=== PATIENT | male | born 1970 ===

== ENCOUNTER 2017-06-09 13:24 | Inpatient (IN) | payer MEDICAID ==
[2017-06-09] MEDS ORDERED: Sodium Chloride 0.9% 1,000 ML IV STA (15:05)
[2017-06-09 15:17] LABS: BASO % 0.1 % (0.0-2.0); EOS % 0.2 % (0.0-4.0); HEMATOCRIT 43.5 % (35.0-51.0); LYMPH % 10.4 % (20.0-40.0); MEAN CELL VOLUME 85.6 fL (80.0-94.0); MEAN CORPUSCULAR HEMOGLOBIN 29.8 pg (27.0-31.0); MEAN CORPUSCULAR HGB CONC 34.8 g/dL (33.0-37.0); MEAN PLATELET VOLUME 8.9 fL (7.2-11.7); MONO # 0.6 K/uL (0.0-0.8); MONO % 6.7 % (0.0-10.0); RED CELL DISTRIBUTION WIDTH 13.7 % (11.5-14.5); WHITE BLOOD COUNT 9.4 K/uL (4.8-10.8)
[2017-06-09 15:20] LABS: RBC URINE < 1 /hpf (0-3); URINE BILIRUBIN NEGATIVE (NEGATIVE); URINE BLOOD NEGATIVE (NEGATIVE); URINE COLOR Straw (YELLOW); URINE GLUCOSE (UA) 1+ mg/dL (Normal); URINE KETONE NEGATIVE (NEGATIVE); URINE LEUKOCYTE ESTERASE NEG Leu/uL (Negative); URINE PROTEIN NEGATIVE (NEGATIVE); URINE UROBILINOGEN NORMAL mg/dL (0.2-1.0); WBC URINE 1 /hpf (0-5)
--- NOTE | 2017-06-09 15:30 | C.PDOC ---
History Of Present Illness 46 y/o male presents to the ED c/o abdominal discomfort. The patient notes waking up at 3am this morning with severe abdominal pain to the right low back. The patient denies fever, vomiting, nausea, diarrhea, constipation, and headache. Time Seen by Provider: 06/09/17 14:25 Chief Complaint (Nursing): Abdominal Pain History Per: Patient Onset/Duration Of Symptoms: Hrs Current Symptoms Are (Timing): Still Present Associated Symptoms: denies: Fever, Chills, Nausea, Vomiting, Diarrhea, Constipation Additional History Per: Patient Past Medical History Reviewed: Historical Data, Nursing Documentation, Vital Signs Vital Signs: Last Vital Signs Temp 98 F 06/09/17 18:16 Pulse 69 06/09/17 18:16 Resp 18 06/09/17 18:16 BP 117/68 06/09/17 18:16 Pulse Ox 99 06/09/17 18:16 Surgical History: No Surg Hx Family History: States: No Known Family Hx - Social History Hx Alcohol Use: No Hx Substance Use: No - Immunization History Hx Tetanus Toxoid Vaccination: No Hx Influenza Vaccination: No Hx Pneumococcal Vaccination: No Review Of Systems Except As Marked, All Systems Reviewed And Found Negative. Constitutional: Negative for: Fever, Chills Cardiovascular: Negative for: Chest Pain Respiratory: Negative for: Cough, Shortness of Breath Gastrointestinal: Positive for: Abdominal Pain. Negative for: Nausea, Vomiting (to right low back ) Musculoskeletal: Positive for: Back Pain Skin: Negative for: Rash Physical Exam - Physical Exam Appears: Non-toxic, No Acute Distress Skin: Warm, Dry Head: Atraumatic Eye(s): bilateral: PERRL Oral Mucosa: Moist Neck: Supple Chest: Symmetrical Cardiovascular: Rhythm Regular Respiratory: Normal Breath Sounds, No Rales, No Rhonchi, No Wheezing Gastrointestinal/Abdominal: Soft, Tenderness (right upper quadrant ), No Guarding, No Rebound Back: Normal Inspection Extremity: Capillary Refill (2<sec.) Neurological/Psych: Oriented x3, Normal Speech, Normal Cognition Gait: Steady ED Course And Treatment - Laboratory Results Result Diagrams: 06/09/17 15:14 06/09/17 15:14 O2 Sat by Pulse Oximetry: 98 (RA) Progress Note: Plan- lab work and US for the gallbladder. Zosyn IV ordered. Case was d/w surgery resident who came down to ED and evaluated patient at [facility]. Patient will be admitted for surgical treatment. Accepted by . Medical Decision Making Medical Decision Making: HISTORY: epigastric abd pain COMPARISON: None. TECHNIQUE: Sonographic evaluation of the right upper quadrant of the abdomen. FINDINGS: LIVER: Measures 18.5 cm in length. Diffusely increased echogenicity of the liver parenchyma. Consistent with fatty infiltration. Smooth contour. No mass. No biliary ductal dilatation. GALLBLADDER: There is a calculus impacted in the gallbladder neck. The gallbladder wall is mildly thickened. There is no pericholecystic fluid. There was no sonographic Hamilton sign elicited. The findings are equivocal for cholecystitis. COMMON BILE DUCT: Measures 5 mm. No stones. No dilatation. PANCREAS: Unremarkable as visualized. No mass. No ductal dilatation. RIGHT KIDNEY: Measures 10.8 cm in length. Normal echogenicity. No calculus, mass, or hydronephrosis. AORTA: No aneurysmal dilatation. IVC: Unremarkable. OTHER FINDINGS: None . IMPRESSION: Impacted calculus in gallbladder neck. Mild thickening of gallbladder wall. Negative sonographic Hamilton sign. Equivocal findings for cholecystitis. Mild hepatomegaly with fatty infiltration. No evidence of biliary obstruction Disposition - Disposition Disposition: HOSPITALIZED Disposition Time: 17:41 Condition: FAIR - Clinical Impression Clinical Impression: Cholecystitis - PA / SHEET SORTER / Resident Statement MD/DO has examined the patient and agrees with the treatment plan. - Scribe Statement The provider has reviewed the documentation as recorded by the Scribe Elvi Baker Decision To Admit - Pt Status Changed To: Hospital Disposition Of: Inpatient - Admit Certification Admit to Inpatient:: After my assessment, the patient will require hospitalization for at least two midnights. This is because of the severity of symptoms shown, intensity of services needed, and/or the medical risk in this patient being treated as an outpatient. - InPatient: Physician Admission Certification:: patient will need surgical treatment and IV antibiotics. - . Bed Request Type: Regular Admitting Physician: Jozef Jacobson Patient Diagnosis: Cholecystitis
[2017-06-09 15:31] LABS: ALB/GLOB RATIO 1.3 (1.0-2.1); CALCIUM 8.5 mg/dl (8.6-10.4); GFR AFRICAN-AMERICAN > 60; GLUCOSE,RANDOM 128 mg/dL (75-110); TOTAL PROTEIN 7.4 g/dL (6.3-8.3)
[2017-06-09 15:43] LABS: ALKALINE PHOSPHATASE 58 U/L (38-126); ALT/SGPT 30 U/L (21-72); AST/SGOT 32 U/L (17-59); BLOOD UREA NITROGEN 11 mg/dL (9-20); CARBON DIOXIDE 28 mmol/L (22-30); CHLORIDE 95 mmol/L (98-107); POTASSIUM 4.2 mmol/L (3.6-5.2); SODIUM 131 mmol/L (132-148)
--- NOTE | 2017-06-09 16:20 | US ---
HISTORY: epigastric abd pain COMPARISON: None. TECHNIQUE: Sonographic evaluation of the right upper quadrant of the abdomen. FINDINGS: LIVER: Measures 18.5 cm in length. Diffusely increased echogenicity of the liver parenchyma. Consistent with fatty infiltration. Smooth contour. No mass. No biliary ductal dilatation. GALLBLADDER: There is a calculus impacted in the gallbladder neck. The gallbladder wall is mildly thickened. There is no pericholecystic fluid. There was no sonographic Hamilton sign elicited. The findings are equivocal for cholecystitis. COMMON BILE DUCT: Measures 5 mm. No stones. No dilatation. PANCREAS: Unremarkable as visualized. No mass. No ductal dilatation. RIGHT KIDNEY: Measures 10.8 cm in length. Normal echogenicity. No calculus, mass, or hydronephrosis. AORTA: No aneurysmal dilatation. IVC: Unremarkable. OTHER FINDINGS: None . IMPRESSION: Impacted calculus in gallbladder neck. Mild thickening of gallbladder wall. Negative sonographic Hamilton sign. Equivocal findings for cholecystitis. Mild hepatomegaly with fatty infiltration. No evidence of biliary obstruction
[2017-06-09] MEDS ORDERED: Piperacillin/Tazobact 3.375 gm 100 ML IV STA (17:40)
[2017-06-09] MEDS ORDERED: Potassium Ch 20mEq in D5W 20 ML in Dextrose 5%/0.45% NS 1,000 ML IV SCH (17:45)
[2017-06-09] MEDS ORDERED: Piperacill/Tazo 3.375gm in Dex 3.375 GM/50 ML BAG IVPB ONE (18:00)
[2017-06-09] MEDS ORDERED: Piperacillin/Tazobact 3.375 GM in Sodium Chloride 100 ML IVPB SCH (18:00)
--- NOTE | 2017-06-09 18:35 | CP.PCM.HP ---
History of Present Illness - History of Present Illness History of Present Illness: General Surgery Dr. Jacobson 46 y/o M w/ no PMHx presents to the ED c/o abd and back pain. Pt states pain began this morning ~3am. Pt states that he took an antibiotic and some antacids w/ no relief. When pain continued to intensify, pt came to the ED for evaluation. Pt reports similar pains in the past but never this intense or long- lasting. Pain comes in waves, most severe in epigastric/RUQ. Pt also reports pain/pressure in low back. Pt denies F/C, N/V, D/C. PMHx: denies Meds: reviewed in chart NKDA PSHx: denies SHx: denies Tobacco, EtOH, drug use FHx: noncontributory Present on Admission - Present on Admission Any Indicators Present on Admission: No Review of Systems - Review of Systems All systems: reviewed and no additional remarkable complaints except (see HPI) Past Patient History - Past Social History Smoking Status: Never Smoked - PSYCHIATRIC Hx Substance Use: No - SURGICAL HISTORY Hx Surgeries: No Meds Allergies/Adverse Reactions: Allergies Allergy/AdvReac Type Severity Reaction Status Date / Time No Known Allergies Allergy Unverified 06/09/17 13:36 Physical Exam - Constitutional Appears: Non-toxic, No Acute Distress - Head Exam Head Exam: NORMAL INSPECTION - Eye Exam Eye Exam: Normal appearance - ENT Exam ENT Exam: Mucous Membranes Moist - Respiratory Exam Respiratory Exam: NORMAL BREATHING PATTERN. absent: Accessory Muscle Use, Respiratory Distress - Cardiovascular Exam Cardiovascular Exam: absent: Bradycardia, Tachycardia - GI/Abdominal Exam GI & Abdominal Exam: Soft, Tenderness (TTP epigastric/RUQ). absent: Guarding, Rebound - Extremities Exam Extremities exam: Positive for: normal inspection - Neurological Exam Neurological exam: Alert, Normal Gait, Oriented x3 - Psychiatric Exam Psychiatric exam: Normal Affect, Normal Mood - Skin Skin Exam: Dry, Intact, Normal Color, Warm Results - Vital Signs Recent Vital Signs: Last Vital Signs Temp 98 F 06/09/17 18:16 Pulse 69 06/09/17 18:16 Resp 18 06/09/17 18:16 BP 117/68 06/09/17 18:16 Pulse Ox 99 06/09/17 18:16 - Labs Result Diagrams: 06/09/17 15:14 06/09/17 15:14 Labs: Laboratory Results - last 24 hr 06/09/17 06/09/17 06/09/17 15:14 15:14 15:14 WBC 9.4 RBC 5.08 Hgb 15.1 Hct 43.5 MCV 85.6 MCH 29.8 MCHC 34.8 RDW 13.7 Plt Count 148 MPV 8.9 Neut % (Auto) 82.6 H Lymph % (Auto) 10.4 L [place] % (Auto) 6.7 Eos % (Auto) 0.2 Baso % (Auto) 0.1 Neut # 7.8 H Lymph # 1.0 [place] # 0.6 Eos # 0.0 Baso # 0.0 Sodium 131 L Potassium 4.2 Chloride 95 L Carbon Dioxide 28 Anion Gap 13 BUN 11 Creatinine 0.5 L Est GFR ( Amer) > 60 Est GFR (Non-Af Amer) > 60 Random Glucose 128 H Calcium 8.5 L Total Bilirubin 1.0 AST 32 ALT 30 Alkaline Phosphatase 58 Total Protein 7.4 Albumin 4.2 Globulin 3.2 Albumin/Globulin Ratio 1.3 Lipase 80 Urine Color Straw Urine Clarity Clear Urine pH 7.0 Ur Specific [place] 1.014 Urine Protein Negative Urine Glucose (UA) 1+ H Urine Ketones Negative Urine Blood Negative Urine Nitrate Negative Urine Bilirubin Negative Urine Urobilinogen Normal Ur Leukocyte Esterase Neg Urine WBC (Auto) 1 Urine RBC (Auto) < 1 Ur Squamous Epith Cells < 1 - Imaging and Cardiology US - abdomen Status: Image reviewed by me, Report reviewed by me Assessment & Plan - Assessment and Plan (Free Text) Assessment: 46 y/o M w/ acute cholecystitis - NPO, IVF - pain management - Zosyn Q6 - f/u AM labs - OR tomorrow for Lap tika Pt discussed w/ Dr. Inidra Grimes DO pGY2
[2017-06-09] MEDS: Potassium Ch 20mEq in D5-1/2NS 1,000 ML IV SCH (19:10)
[2017-06-10] MEDS: Piperacill/Tazo 3.375gm in Dex 3.375 GM/50 ML BAG IVPB SCH ×3 (02:01→11:10)
[2017-06-10 06:23] LABS: HEMATOCRIT 39.9 % (35.0-51.0); MEAN CELL VOLUME 85.2 fL (80.0-94.0); MEAN CORPUSCULAR HEMOGLOBIN 30.2 pg (27.0-31.0); MEAN CORPUSCULAR HGB CONC 35.4 g/dL (33.0-37.0); MEAN PLATELET VOLUME 8.4 fL (7.2-11.7); RED CELL DISTRIBUTION WIDTH 13.6 % (11.5-14.5); WHITE BLOOD COUNT 6.8 K/uL (4.8-10.8)
[2017-06-10 08:05] LABS: ALB/GLOB RATIO 1.3 (1.0-2.1); ALKALINE PHOSPHATASE 49 U/L (38-126); ALT/SGPT 26 U/L (21-72); AST/SGOT 22 U/L (17-59); BLOOD UREA NITROGEN 7 mg/dL (9-20); CALCIUM 7.7 mg/dl (8.6-10.4); CARBON DIOXIDE 28 mmol/L (22-30); CHLORIDE 100 mmol/L (98-107); GFR AFRICAN-AMERICAN > 60; GLUCOSE,RANDOM 94 mg/dL (75-110); POTASSIUM 3.7 mmol/L (3.6-5.2); SODIUM 133 mmol/L (132-148)
[2017-06-10] MEDS ORDERED: Lactated Ringer's 1,000 ML IV ONE ×4 (10:51→11:50)
[2017-06-10] MEDS ORDERED: Rocuronium 10 mg/ml (5 ml) ONE (10:56)
[2017-06-10] MEDS ORDERED: Propofol 10 mg/ml Inj (20 ML) ONE (10:56)
[2017-06-10] MEDS ORDERED: Bupivacaine HCl 0.5% PF (10 ml) Inj ONE (11:02)
[2017-06-10] MEDS ORDERED: Lidocaine 2% w Epi 1:100,000 Inj IJ ONE (11:02)
[2017-06-10] MEDS ORDERED: Neostigmine Methylsulfate 3mg/3ml Syringe IV ONE (11:29)
--- NOTE | 2017-06-10 11:59 | PCM.SURG1 ---
Surgeon's Initial Post Op Note - Surgeon's Notes Surgeon: Dr Jacobson Elevator Mechanic Apprentice: Dr Castro PGY3 Type of Anesthesia: General Endo Pre-Operative Diagnosis: acute cholecystitis Operative Findings: as above Post-Operative Diagnosis: acute cholecystitis Operation Performed: laparoscopic cholecystectomy Specimen/Specimens Removed: gallbladder Estimated Blood Loss: EBL {In ML}: 10 Blood Products Given: N/A Drains Used: No Drains Post-Op Condition: Good Date of Surgery/Procedure: 06/10/17 Time of Surgery/Procedure: 11:59
[2017-06-10 12:30] VITALS: O2SAT 99
[2017-06-10 12:46] VITALS: RESP 17
[2017-06-10 14:19] VITALS: BP 115/77; PULSE 74; TEMP 97.4
[2017-06-10] MEDS: Potassium Ch 20mEq in D5-1/2NS 1,000 ML IV SCH (15:01)
--- NOTE | 2017-06-10 15:37 | CP.PCM.DIS ---
Provider - Provider Date of Admission: 06/09/17 17:33 Attending physician: Jozef Jacobson MD Time Spent in preparation of Discharge (in minutes): 5 Hospital Course - Lab Results Lab Results: Most Recent Lab Values WBC 6.8 K/uL (4.8-10.8) 06/10/17 06:16 RBC 4.68 Mil/uL (4.40-5.90) 06/10/17 06:16 Hgb 14.1 g/dL (12.0-18.0) 06/10/17 06:16 Hct 39.9 % (35.0-51.0) 06/10/17 06:16 MCV 85.2 fL (80.0-94.0) 06/10/17 06:16 MCH 30.2 pg (27.0-31.0) 06/10/17 06:16 MCHC 35.4 g/dL (33.0-37.0) 06/10/17 06:16 RDW 13.6 % (11.5-14.5) 06/10/17 06:16 Plt Count 134 K/uL (130-400) 06/10/17 06:16 MPV 8.4 fL (7.2-11.7) 06/10/17 06:16 Neut % (Auto) 82.6 % (50.0-75.0) H 06/09/17 15:14 Lymph % (Auto) 10.4 % (20.0-40.0) L 06/09/17 15:14 [place] % (Auto) 6.7 % (0.0-10.0) 06/09/17 15:14 Eos % (Auto) 0.2 % (0.0-4.0) 06/09/17 15:14 Baso % (Auto) 0.1 % (0.0-2.0) 06/09/17 15:14 Neut # 7.8 K/uL (1.8-7.0) H 06/09/17 15:14 Lymph # 1.0 K/uL (1.0-4.3) 06/09/17 15:14 [place] # 0.6 K/uL (0.0-0.8) 06/09/17 15:14 Eos # 0.0 K/uL (0.0-0.7) 06/09/17 15:14 Baso # 0.0 K/uL (0.0-0.2) 06/09/17 15:14 Sodium 133 mmol/L (132-148) 06/10/17 06:16 Potassium 3.7 mmol/L (3.6-5.2) 06/10/17 06:16 Chloride 100 mmol/L (98-107) 06/10/17 06:16 Carbon Dioxide 28 mmol/L (22-30) 06/10/17 06:16 Anion Gap 9 (10-20) L 06/10/17 06:16 BUN 7 mg/dL (9-20) L 06/10/17 06:16 Creatinine 0.9 mg/dL (0.8-1.5) 06/10/17 06:16 Est GFR ( Amer) > 60 06/10/17 06:16 Est GFR (Non-Af Amer) > 60 06/10/17 06:16 Random Glucose 94 mg/dL (75-110) 06/10/17 06:16 Calcium 7.7 mg/dl (8.6-10.4) L 06/10/17 06:16 Total Bilirubin 2.0 mg/dL (0.2-1.3) H 06/10/17 06:16 AST 22 U/L (17-59) 06/10/17 06:16 ALT 26 U/L (21-72) 06/10/17 06:16 Alkaline Phosphatase 49 U/L (38-126) 06/10/17 06:16 Total Protein 6.0 g/dL (6.3-8.3) L 06/10/17 06:16 Albumin 3.4 g/dL (3.5-5.0) L 06/10/17 06:16 Globulin 2.7 gm/dL (2.2-3.9) 06/10/17 06:16 Albumin/Globulin Ratio 1.3 (1.0-2.1) 06/10/17 06:16 Lipase 80 U/L (23-300) 06/09/17 15:14 Urine Color Straw (YELLOW) 06/09/17 15:14 Urine Clarity Clear (Clear) 06/09/17 15:14 Urine pH 7.0 (5.0-8.0) 06/09/17 15:14 Ur Specific [place] 1.014 (1.003-1.030) 06/09/17 15:14 Urine Protein Negative mg/dL (NEGATIVE) 06/09/17 15:14 Urine Glucose (UA) 1+ mg/dL (Normal) H 06/09/17 15:14 Urine Ketones Negative mg/dL (NEGATIVE) 06/09/17 15:14 Urine Blood Negative (NEGATIVE) 06/09/17 15:14 Urine Nitrate Negative (NEGATIVE) 06/09/17 15:14 Urine Bilirubin Negative (NEGATIVE) 06/09/17 15:14 Urine Urobilinogen Normal mg/dL (0.2-1.0) 06/09/17 15:14 Ur Leukocyte Esterase Neg [place]/uL (Negative) 06/09/17 15:14 Urine WBC (Auto) 1 /hpf (0-5) 06/09/17 15:14 Urine RBC (Auto) < 1 /hpf (0-3) 06/09/17 15:14 Ur Squamous Epith Cells < 1 /hpf (0-5) 06/09/17 15:14 Blood Type A NEGATIVE 06/10/17 06:16 Antibody Screen Negative 06/10/17 06:16 - Hospital Course Hospital Course: 46M admitted for acute cholecystitis. Taken to OR for laparoscopic cholecystectomy. Tolerated without difficulty. Currently ambulating, pain well controlled. tolerating diet. Anatoliy d/w with rx for percocet and instructions to f/u in 1 week Discharge Exam - Head Exam Head Exam: NORMAL INSPECTION Discharge Plan - Discharge Medications Prescriptions: oxyCODONE/Acetaminophen [Percocet 5/325 mg Tab] 1 ea PO Q4H PRN #12 tab PRN Reason: Pain, Moderate (4-7) - Follow Up Plan Condition: FAIR Disposition: HOME/ ROUTINE Additional Instructions: clear to shower 06/11 remove dressing 06/11: do not remove steri-strips f/u in Dr Jacobson office in 1 week
== END 2017-06-10 17:40 | disposition home or self-care (01) | DRG 494 ==
LOC: C.ER 13:24 → C.9E 17:33 → C.3T 21:46
PROVIDERS: ADMIT Surgery; ATTEND Surgery
PROC: 0FT44ZZ Resection of Gallbladder, Percutaneous Endoscopic Approach (ICD-10-PCS; principal; 2017-06-10 11:00)
DX: K80.00 Calculus of gallbladder with acute cholecystitis without obstruction (principal)